=== PATIENT | male | born 1985 | race African-American/Black ===

== ENCOUNTER 2017-09-04 19:38 | Emergency (ER) | payer SELFPAY ==
[2017-09-04 19:56] LABS: BASOPHILS % (AUTO) 1.4 % (0.0-5.0); EOSINOPHILS % (AUTO) 1.7 % (0.0-8.0); HEMATOCRIT 48.6 % (42-54); MEAN CORPUSCULAR HEMOGLOBIN 34.3 pg (27.0-33.0); MEAN CORPUSCULAR HGB CONC 34.3 g/dL (32.0-36.0); MONOCYTES % (AUTO) 7.4 % (3.0-13.0); NEUTROPHILS % (AUTO) 50.5 % (40.0-77.0); PLATELET COUNT (AUTO) 320 K/uL (130-400); RED BLOOD CELL COUNT(AUTO) 4.85 MIL/uL (4.50-6.20); RED CELL DISTRIBUTION WIDTH 14.5 % (11.0-15.5); WHITE BLOOD COUNT (AUTO) 10.8 K/uL (4.8-10.8)
[2017-09-04] MEDS ORDERED: KETOROLAC TROMETHAMINE 15MG/ML ONE (20:05)
[2017-09-04 20:06] LABS: CREATININE 1.2 mg/dL (0.5-1.5); INR 0.95 (0.85-1.15); PARTIAL THROMBOPLASTIN TIME 22.3 SEC (26.3-35.5); POTASSIUM 3.8 mmol/L (3.5-5.1)
[2017-09-04 20:20] LABS: ALBUMIN 4.3 g/dL (3.5-5.0); BILIRUBIN,TOTAL 0.4 mg/dL (0.2-1.0); CREATINE KINASE MB 1.2 ng/mL (0.5-3.6); TOTAL PROTEIN, SERUM 8.1 g/dL (6.0-8.3)
== END 2017-09-04 22:43 | disposition home or self-care (01) ==
LOC: EDH 19:38
DX: S22.32XA Fracture of one rib, left side, initial encounter for closed fracture (principal); Z72.0 Tobacco use; X58.XXXA Exposure to other specified factors, initial encounter; Y93.89 Activity, other specified; Y92.89 Other specified places as the place of occurrence of the external cause; Y99.8 Other external cause status
CPT/HCPCS: 36415; 71101; 80053; 82550; 82553; 83874; 84484; 85025; 85610; 85730; 93005; 94761; 96374; 99285; J1885

== ENCOUNTER 2018-03-08 02:14 | Emergency (ER) | payer OTHER ==
[2018-03-08] MEDS ORDERED: IBUPROFEN 600 MG TABLET ONE (02:44)
== END 2018-03-08 03:01 | disposition home or self-care (01) ==
LOC: EDH 02:14
DX: S00.83XA Contusion of other part of head, initial encounter (principal); Z72.0 Tobacco use; Y04.0XXA Assault by unarmed brawl or fight, initial encounter; Y93.89 Activity, other specified; Y92.89 Other specified places as the place of occurrence of the external cause; Y99.8 Other external cause status

== ENCOUNTER 2018-03-13 18:21 | Emergency (ER) | payer OTHER | END 2018-03-13 19:10 | disposition home or self-care (01) | LOC: EDH 18:21 | DX: S03.2XXA Dislocation of tooth, initial encounter (principal); F10.129 Alcohol abuse with intoxication, unspecified; Z72.0 Tobacco use; Y90.9 Presence of alcohol in blood, level not specified; Y04.2XXA Assault by strike against or bumped into by another person, initial encounter; Y93.89 Activity, other specified; Y92.830 Public park as the place of occurrence of the external cause; Y99.8 Other external cause status ==

== ENCOUNTER 2018-04-03 01:49 | Emergency (ER) | payer OTHER | END 2018-04-03 04:53 | disposition home or self-care (01) | LOC: EDH 01:49 | DX: S00.532A Contusion of oral cavity, initial encounter (principal); S09.8XXA Other specified injuries of head, initial encounter; T14.8XXA Other injury of unspecified body region, initial encounter; Z72.0 Tobacco use; Y04.0XXA Assault by unarmed brawl or fight, initial encounter; Y93.89 Activity, other specified; Y92.89 Other specified places as the place of occurrence of the external cause; Y99.8 Other external cause status | CPT/HCPCS: 70450; 70486; 71101 ==